=== PATIENT | female | born 1965 | race African-American/Black ===

== ENCOUNTER 2019-12-25 07:52 | Observation (INO) | payer OTHER ==
[~2019-12-25] VITALS: Ht 160 cm; Wt 66.2 kg
[~2019-12-25 07:52] MED LIST: GABAPENTIN300 MG PO; HYDROXYCHLOROQ200 MG PO
--- OUTSIDE RECORDS SUMMARY | 2019-12-25 07:55 | XMS REPORT | Summary of Care ---
Author Author MACHO WHITE M.D. Organization Unknown Address [facility] Phone Unavailable Care Team Providers Care Oil Field Rig Builder Name Role Phone MACHO WHITE M.D. Unavailable Unavailable Unavailable Unavailable Functional Status Name Dates Details Functional status health issues are not documented Status: Name Dates Details Cognitive status health issues are not documented Status: Problems Name Dates Details Chronic sinusitis (473.9, J32.9) Status: Active Hypertrophy of nasal turbinates (478.0, J34.3) Status: Active Nasal septal deviation (470, J34.2) Status: Active Chronic headaches (784.0, R51) Status: Active Medications Name Dates Details Xhance 93 MCG/ACT Nasal Exhaler Suspension 1 spray each nostril BID Quantity: 1 MACHO WHITE M.D. * Start : 11-Feb-2018 Active 16 ML Box TraZODone HCl TABS * Refills: 0 Active ROPINIRole HCl TABS * Refills: 0 Active Cyproheptadine HCl TABS * Refills: 0 Active Fluticasone Propionate SUSP * Refills: 0 Active Allergies and Adverse Reactions Name Dates Details No Known Drug Allergies (Allergy) Status: Active Past Medical History Name Dates Details History of arthritis (V13.4, Z87.39) Status: Resolved Procedures Procedure Dates Details CT Sinus w/o contrast with sag recons [address]104 Date: 11-Feb-2018 Immunization Name Dates Details Immunizations not documented Family History Name Dates Details No significant family history Comments: Family History Status: Active Social History Name Dates Details - Status: Name Dates Details Never smoker Vital Signs Date Test Result Details [id number] Height 64 in Status: Weight 142 lb Status: Body Mass Index Calculated 24.37 kg/m2 Status: Body Surface Area Calculated 1.69 m2 Status: [id number] BP Systolic 143 mm[Hg] Status: BP Diastolic 86 mm[Hg] Status: Height 64 in Status: Weight 142 lb Status: Body Mass Index Calculated 24.37 kg/m2 Status: Body Surface Area Calculated 1.69 m2 Status: Heart Rate 84 /min Status: Results Date Description Value Details [id number] Tobacco Use Screening Completed DONE Plan of Care Name Dates Details Planned Observations Planned Goals not documented Planned Encounters Neurology Referral Interventions Provided Plan* 1. Will need to continue on the nasal spray. Will send to Neurology for the headaches. CT sinus normal. Instructions Name Dates Details Instructions not documented Encounters Appointment; MACHO WHITE M.D. Encounter Diagnosis: Problem not documented On: 11-Feb-2018 15:30 Appointment; MACHO WHITE M.D. Encounter Diagnosis: Problem not documented On: 28-Feb-2018 10:30
--- OUTSIDE RECORDS SUMMARY | 2019-12-25 07:55 | XMS REPORT | Encounter Summary ---
Author Organization Unknown Address [address] [place] [address] Phone [phone] Care Team Providers Care Criminal Legal Assistant Name Role Phone Dr. Ernesto [place] 3 [phone] [facility] [place] 2 [phone] Reason for Visit Annual physical - female Instructions 1. Adult health examination CBC w/ auto diff TSH, serum or plasma urinalysis, dipstick electrocardiogram 2. Obstructive sleep apnea syndrome 3. Polyarthropathy rf (rheumatoid factor), serum erythrocyte sedimentation rate by westergren method MANUELA (antinuclear antibodies) titer + pattern, ifa, serum 4. Mixed hyperlipidemia lipid panel, serum CMP, serum or plasma 5. Perimenopausal state FSH (follicle-stimulating hormone), serum estrogen, total, serum bone density - PLEASE CALL PATIENT AND SCHEDULE HER AN APPOINTMENT. 6. Depressive disorder albuterol sulfate 2.5 mg/3 mL (0.083 %) solution for nebulization fluoxetine 20 mg capsule 7. Vitamin D deficiency ergocalciferol (vitamin D2) 50,000 unit capsule vitamin D, 25-hydroxy, total, serum 8. Restless legs ropinirole 0.5 mg tablet 9. Seasonal allergic rhinitis cyproheptadine 4 mg tablet 10. Screening for malignant neoplasm of breast MAMMO, screening, digital, bilateral - PLEASE CALL PATIENT AND SCHEDULE HER AN APPOINTMENT. 11. Screening for malignant neoplasm of colon colonoscopy referral - PLEASE CALL PATIENT AND SCHEDULE HER AN APPOINTMENT. fecal occult blood, stool 12. Screening for malignant neoplasm of cervix gynecology referral - PLEASE CALL PATIENT AND SCHEDULE HER AN APPOINTMENT. 13. Body mass index 20-24 - normal 14. High hemoglobin A1c level HbA1c (hemoglobin A1c), blood Discussion Note: None recorded. Patient educational handouts: No information available. Plan of Care Reminders Provider Appointments Est Patient 03/13/2019 10:30AM Yulisa Valdes MD Lab CBC W/ Auto Diff 02/17/2019 [facility] TSH, Serum or Plasma 02/17/2019 [facility] Urinalysis, Dipstick 02/17/2019 [place] ([facility] Fecal Occult Blood, Stool 02/17/2019 [facility] Vitamin D, 25-Hydroxy, Total, Serum 02/17/2019 [facility] FSH (Follicle-stimulating Hormone), Serum 02/17/2019 [facility] Estrogen, Total, Serum 02/17/2019 [facility] Lipid Panel, Serum 02/17/2019 [facility] CMP, Serum or Plasma 02/17/2019 [facility] HbA1C (Hemoglobin a1C), Blood 02/17/2019 [facility] Rf (Rheumatoid Factor), Serum 02/17/2019 [facility] Erythrocyte Sedimentation Rate by Westergren Method 02/17/2019 [facility] MANUELA (Antinuclear Antibodies) Titer + Pattern, Ifa, Serum 02/17/2019 [facility] Referral Colonoscopy Referral 02/17/2019 Liliam Prajapati MD Gynecology Referral 02/17/2019 Ryan Cortez MD Procedures None recorded. Surgeries None recorded. Imaging MAMMO, Screening, Digital, Bilateral 02/17/2019 [facility] Electrocardiogram 02/17/2019 [facility] Bone Density 02/17/2019 [facility] Medications Name Start Date albuterol sulfate 2.5 mg/3 mL (0.083 %) solution for nebulization Inhale 3 mL every 6 hours by nebulization route as needed. cyproheptadine 4 mg tablet TAKE 1 TABLET BY MOUTH AT BEDTIME NEEDED ergocalciferol (vitamin D2) 50,000 unit capsule Take 1 capsule twice a week by oral route. fluoxetine 20 mg capsule Take 1 capsule every day by oral route. Half a tablet per day for first two weeks, then one tablet per day. ProAir HFA 90 mcg/actuation aerosol inhaler Inhale 2 puffs every 6 hours by inhalation route as needed for 10 days. ropinirole 0.5 mg tablet Take 1 tablet every day by oral route at bedtime. trazodone 50 mg tablet Take 1 tablet every day by oral route as needed. Medications Administered None recorded. Vitals Height Weight BMI Blood Pressure 5 ft 3 in 138 lbs 24.4 kg/m2 (1) 148/90 mm[Hg] (2) 150/96 mm[Hg] Lab Results Date Name Specimen Result Interpretation Description Value Range Status Address Electrocardiogram No observation recorded. [place] [place] ([facility]) [place]: [address] [place] Urinalysis, Dipstick Color Glucose negative [place] ([facility]) [place]: [address] [place] Color Bilirubin negative [place] ([facility]) [place]: [address] [place] Color Ketones negative [place] ([facility]) [place]: [address] [place] Color Specific [place] 1.015 [place] ([facility]) [place]: [address] [place] Color Blood trace [place] [facility] [place]: [address] [place] Color PH 7.0 [place] [facility] [place]: [address] [place] Color Protein negative [place] ([facility]) [place]: [address] [place] Color Urobilinogen 0.2 [place] ([facility]) [place]: [address] [place] Color Nitrites negative [place] ([facility]) [place]: [address] [place] Color Leukocytes negative [place] ([facility]) [place]: [address] [place] Allergies Code Code System Name Reaction Severity Status Onset NKDA Problems Name Status Onset Date Source Vitamin D Deficiency Active 04/10/2017 Restless Legs Active 04/10/2017 Blood in Urine Active 04/10/2017 Multiple Joint Pain Active 04/10/2017 Mixed Hyperlipidemia Active 04/24/2017 High Hemoglobin a1C Level Active 04/24/2017 Hyperglycemia Active 04/24/2017 Obstructive Sleep Apnea Syndrome Active 02/17/2019 Seasonal Allergic Rhinitis Active 02/21/2019 Procedures Date Name Performed by 10/07/2005 Partial Hysterectomy Information not available 10/07/2001 Colonoscopy Information not available Foot/toes Surgery Procedure Information not available 02/17/2019 MAMMO, Screening, Digital, Bilateral [facility] [place] [address] [place] [address] (Work [place]) 02/17/2019 Electrocardiogram [place] [place] ([facility]) [place] [address] [place] [address] (Work Place) 02/17/2019 Bone Density [facility] [address] [place] [address] (Work Place) Vaccine List Vaccine Type MMR 01/05/2015 Tdap 10/07/2013 Social History Smoking Status Never Smoker Past Encounters 02/17/2019 Adult Health Examination; Obstructive Sleep Apnea Syndrome; Polyarthropathy; Mixed Hyperlipidemia; Perimenopausal State; Depressive Disorder; Vitamin D Deficiency; Restless Legs; Seasonal Allergic Rhinitis; Screening for Malignant Neoplasm of Breast; Screening for Malignant Neoplasm of Colon; Screening for Malignant Neoplasm of Cervix; Body Mass Index 20-24 - Normal; High Hemoglobin a1C Level Yulisa Valdes MD: [address] [place] [address], Ph. History of Present Illness Note:53yo female presents for annual physical. Was a pt of Dr Pennington before he retired. Here today for medication refills & fasting labwork. 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 Originally from [place]. [place]. Nonsmoker.<div>BP elevated in office. Checks bp at home with normal readings 120/80 at home. Sc ared of needles & bloodwork.</div><div><div>Pt without c/o today. No SOB or CP. No Lightheadedness. </div><div>Pt is stressed & depressed. Tearful. Discussed starting low-dose SSRI. Explained use & side effects. Pt not suicidal.</div></div><div>
<div>PMHx:</div><div>Family hx of DM - mother & amp; sister. Pt does not have DM & last A1c was 5.9% on 04/10/2017. Not on any medication for sugar.</div><div>Hyperlipidemia - diet controlled. Last lipid panel on 04/10/17 with TC 270, HDL 50, LDL 190, TG 151. Not on medication currently, was on atorvastatin 20mg qd in past. Has been off for past year. Trying to watch low chol diet.</div><div>Restless leg syndrome - on Requip for past year from neuro.</div><div>JOSE L- on CPAP for past year from neuro. Setting of 7cm H2o. Next visit with neuro in Jul 2019 - goes annually.</div><div>Vitamin D def - on replacement vit D</div><div>Seasonal allergies - on cyprohepatadine 4mg qhs prn & albuterol neb & inhaler as needed.</div><div>Insomnia - on trazodone 50mg qhs prn</div></div><div>Arthritis - right hip (uses cane or hand brace with flare), small joints of hands. Was evaluated by rheum, Dr Hightower in 2015. Had trial of prednisone & plaquenil for RNF/polyarthritis. Uses Advil as needed.</div><div>Due for colonoscopy, last in 2001, normal per pt.</div><div >Due for mammogram, last in 2006. Never had bone density.</div><div>Partial hysterectomy in 2005. No HRT. Ovaries still in. Still with hotflashes. Due for Pap last in 2007.</div><div>
</div> Review of Systems:ROS as noted in the HPI Review of Systems Comprehensive General Adult ROS Reported By: Patient Constitutional: Constitutional: no fever Eyes: Eyes: no vision change Cardiovascular: Cardiovascular: no chest pain Respiratory: Respiratory: no cough, no wheezing, no shortness of breath Gastrointestinal: Gastrointestinal: no abdominal pain Neurologic: Neurologic: no loss of consciousness, no headaches Psychiatric: Psych: no depression, no alcohol abuse, no anxiety, no suicidal thoughts Physical Exam General Adult Exam (Female) Reported By: Patient Constitutional: General Appearance: healthy-appearing, well-nourished, well-developed. Level of Distress: NAD. Ambulation: ambulating normally Psychiatric: Mental Status: active and alert, normal mood, normal affect Eyes: Lids and Conjunctivae: non-injected. Pupils: PERRLA. EOM: EOMI. Sclerae: non-icteric ENMT: Hearing: no hearing loss. Oropharynx: moist mucous membranes Neck: Thyroid: non-tender, no nodules Lungs: Respiratory effort: no dyspnea. Auscultation: breath sounds normal, good air movement, no wheezing, no rales/crackles Cardiovascular: Heart Auscultation: RRR, normal S1, normal S2, no murmurs. Neck vessels: no carotid bruits Abdomen: Bowel Sounds: normal. Inspection and Palpation: soft Musculoskeletal:: Joints, Bones, and Muscles: normal movement of all extremities. Extremities: no edema Neurologic: Gait and Station: normal gait Skin: Inspection and palpation: no rash
--- OUTSIDE RECORDS SUMMARY | 2019-12-25 07:55 | XMS REPORT | Encounter Summary ---
Author Organization Unknown Address [address] [place] [address] Phone [phone] Care Team Providers Care Competitive Athlete Name Role Phone Dr. Ernesto Austin 3 [phone] [facility] [place] 2 [phone] Reason for Visit lab follow-up Instructions 1. Mixed hyperlipidemia 2. Depressive disorder fluoxetine 40 mg capsule 3. Elevated blood-pressure reading without diagnosis of hypertension elevated blood pressure: care instructions hydrochlorothiazide 12.5 mg capsule 4. Vitamin D deficiency 5. High hemoglobin A1c level 6. Body mass index 20-24 - normal 7. Adult health examination Discussion Note: None recorded. Plan of Care Reminders Provider Appointments Return to Office on or around 04/17/2019 Yulisa Valdes MD Est Patient 04/27/2019 3:15PM Yulisa Valdes MD Lab None recorded. Referral None recorded. Procedures None recorded. Surgeries None recorded. Imaging None recorded. Medications Name Start Date albuterol sulfate 2.5 mg/3 mL (0.083 %) solution for nebulization Inhale 3 mL every 6 hours by nebulization route as needed. atorvastatin 20 mg tablet Take 1 tablet every day by oral route. cyproheptadine 4 mg tablet TAKE 1 TABLET BY MOUTH AT BEDTIME NEEDED ergocalciferol (vitamin D2) 50,000 unit capsule Take 1 capsule twice a week by oral route. fluoxetine 20 mg capsule TAKE 1 CAPSULE BY MOUTH EVERY DAY fluoxetine 40 mg capsule Take 1 capsule every day by oral route. hydrochlorothiazide 12.5 mg capsule Take 1 capsule every day by oral route. ProAir HFA 90 mcg/actuation aerosol inhaler Inhale 2 puffs every 6 hours by inhalation route as needed for 10 days. ropinirole 0.5 mg tablet Take 1 tablet every day by oral route at bedtime. trazodone 50 mg tablet Take 1 tablet every day by oral route as needed. Medications Administered None recorded. Vitals Height Weight BMI Blood Pressure 5 ft 3 in 132 lbs 23.4 kg/m2 142/80 mm[Hg] Lab Results Date Name Specimen Result Interpretation Description Value Range Status Address 02/23/2019 Fecal Occult Blood, Stool Fecal Globin by Immunochemistry not detected Final [facility]: [address] [place] [address], [place] 02/17/2019 Estrogen, Total, Serum Estrogen, Total, Serum 97.7 pg/mL Final [facility]: [address] [place] [address], [place] 02/17/2019 Rf (Rheumatoid Factor), Serum Normal Rheumatoid Factor <14 IU/mL <14 IU/mL Final [facility]: [address] [place] [address], [place] 02/17/2019 MANUELA (Antinuclear Antibodies) Titer + Pattern, Ifa, Serum Normal MANUELA Screen, Ifa negative negative Final [facility]: [address] [place] [address], [place] 02/17/2019 FSH (Follicle-stimulating Hormone), Serum Normal Fsh 98.9 mIU/mL Final [facility]: [address] [place] [address], [place] 02/17/2019 Erythrocyte Sedimentation Rate by Westergren Method Normal Sed Rate by Modified Westergren 14 mm/h < or=30 mm/h Final [facility]: [address] [place] [address], [place] 02/17/2019 CBC W/ Auto Diff Wbc 5.02 x10*3/L 3.98-10.04 x10*3/L Final [facility]: [address] [place] [address] Rbc 4.92 10*12/L 3.93-5.22 10*12/L Final [facility]: [address] [place] [address] Hemoglobin 13.50 g/dL 11.20-15.70 g/dL Final [facility]: [address] [place] [address] Hematocrit 41.1 % 34.1-44.9 % Final [facility]: [address] [place] [address] Mcv 83.5 fL 80.0-100.0 fL Final [facility]: [address] [place] [address] Mch 27.4 pg 25.6-32.2 pg Final [facility]: [address] [place] [address] Mchc 32.8 g/dL 32.2-35.5 g/dL Final [facility]: [address] [place] RDW-SD 39.8 fL 36.4-46.3 fL Final [facility]: [address] [place] High Platelet Count 401.0 k/uL 182.0-369.0 k/uL Final [facility]: [address] [place] Mpv 10.7 fL 7.5-11.5 fL Final [facility]: [address] [place] Neut% 45.8 % 34.0-71.1 % Final [facility]: [address] [place] Lymph% 42.6 % 19.3-51.7 % Final [facility]: [address] [place] Mon% 8.0 % 4.7-12.5 % Final [facility]: [address] [place] Eos% 3.4 % 0.7-5.8 % Final [facility]: [address] [place] Baso% 0.2 % 0.1-1.2 % Final [facility]: [address] [place] Neut# 2.3 x10*3/L 1.6-6.1 x10*3/L Final [facility]: [address] [place] Lymph# 2.1 x10*3/L 1.2-3.7 x10*3/L Final [facility]: [address] [place] Mon# 0.4 x10*3/L 0.2-0.9 x10*3/L Final [facility]: [address] [place] Eos# 0.17 x10*3/L 0.04-0.36 x10*3/L Final [facility]: [address] [place] Baso# 0.01 x10*3/L 0.01-0.08 x10*3/L Final [facility]: [address] [place] 02/17/2019 CMP, Serum or Plasma Alt 17 U/L 0-55 U/L Final [facility]: [address] [place] Ast 22 U/L 5-34 U/L Final [facility] [address] [facility] Bun 14.0 mg/dL 9.8-25.0 mg/dL Final [facility] [address] [facility] [facility] Alk Phos 78 unit/L 40-150 unit/L Final [facility]: [address] [facility] Glucose 96 mg/dL 70-99 mg/dL Final [facility]: [address] [facility] Albumin 4.1 g/dL 3.4-5.1 g/dL Final [facility]: [address] [facility] Creatinine 1.03 mg/dL 0.57-1.11 mg/dL Final [facility]: [address] [facility] ABNORMAL eGFR Non- 56 mL/min/1.73m2 Final [facility]: [address] [facility] Total Bilirubin 0.4 mg/dL 0.2-1.2 mg/dL Final [facility]: [address] [place] [address] eGFR - >60 mL/min/1.73m2 Final [facility]: [address] [facility] [facility] Sodium 142 mEq/L 135-145 mEq/L Final [facility]: [address] [facility] Potassium 4.5 mEq/L 3.5-5.1 mEq/L Final [facility]: [address] [facility] Chloride 106 mmol/L 98-110 mmol/L Final [facility]: [address] [facility] [facility] Total Protein 7.4 g/dL 6.1-8.2 g/dL Final [facility]: [address] [facility] Calcium 10.3 mg/dL 8.6-10.4 mg/dL Final [facility]: [address] [facility] Co2 27.2 mmol/L 20.0-32.0 mmol/L Final [facility]: [address] [facility] Anion Gap 9 calc Final [facility]: [address] [facility] 02/17/2019 Lipid Panel, Serum Low Hdl 49 mg/dL >50 mg/dL Final [facility]: [address] High Triglyceride 213 mg/dL <150 mg/dL Final [facility]: [address] VLDL Calc. 43 mg/dL Final [facility]: [address] cholesterol/HDL Ratio 6.0 mg/dL Final [facility]: [address] High non-HDL Cholesterol Calc. 245 mg/dL <160 mg/dL Final [facility]: [address] High Cholesterol 294 mg/dL <200 mg/dL Final [facility]: [address] High LDL Calc. 202 mg/dL <130 mg/dL Final [facility]: [address] 02/17/2019 TSH, Serum or Plasma Tsh 2.188 uIU/mL 0.350-4.940 uIU/mL Final [facility]: [address] 02/17/2019 Vitamin D, 25-Hydroxy, Total, Serum Low Vitamin D 25OH 23.1 NG/mL 30.0-96.0 NG/mL Final [facility]: [address] 02/17/2019 HbA1C (Hemoglobin a1C), Blood High A1C W/eag 5.9 % 1.0-5.7 % Final [facility]: [address] Average Blood Glucose 123 mg/dL Final [facility]: [address] Electrocardiogram No observation recorded. [facility] ([facility] [place]: [address] [place] Urinalysis, Dipstick Color Glucose negative [facility] ([facility]) [place]: [address] [place] Color Bilirubin negative [facility] ([facility]) [place]: [address] [place] Color Ketones negative [facility] ([facility]) [place]: [address] [place] Color Specific [place] 1.015 [facility] ([facility] [place] [address] [place] Color Blood trace [facility] ([facility] [place]: [address] [place] Color PH 7.0 [facility] ([facility] [place]: [address] [place] Color Protein negative [facility] ([facility]) [place]: [address] [place] Color Urobilinogen 0.2 [facility] ([facility]) [place]: [address] [place] Color Nitrites negative [facility] ([facility]) [place]: [address] [place] Color Leukocytes negative [facility] ([facility]) [place]: [address] [place] Allergies Code Code System Name Reaction Severity Status Onset NKDA Problems Name Status Onset Date Source Vitamin D Deficiency Active 04/10/2017 Restless Legs Active 04/10/2017 Blood in Urine Active 04/10/2017 Multiple Joint Pain Active 04/10/2017 Mixed Hyperlipidemia Active 04/24/2017 High Hemoglobin a1C Level Active 04/24/2017 Hyperglycemia Active 04/24/2017 Obstructive Sleep Apnea Syndrome Active 02/17/2019 Seasonal Allergic Rhinitis Active 02/21/2019 Depressive Disorder Active 03/14/2019 Elevated Blood-pressure Reading without Diagnosis of Hypertension Active 03/14/2019 Procedures Date Name Performed by 10/07/2005 Partial Hysterectomy Information not available 10/07/2001 Colonoscopy Information not available Foot/toes Surgery Procedure Information not available 02/17/2019 MAMMO, Screening, Digital, Bilateral [facility] [address] [place] [address] (Work Place) 02/17/2019 Electrocardiogram [facility] ([facility] [place] [address] [place] [phone] (Work Place) 02/17/2019 Bone Density [facility] [address] [place] [address] (Work [address]) Vaccine List Vaccine Type MMR 01/05/2015 Tdap 10/07/2013 Social History Smoking Status Never Smoker Past Encounters 03/13/2019 Mixed Hyperlipidemia; Depressive Disorder; Elevated Blood-pressure Reading without Diagnosis of Hypertension; Vitamin D Deficiency; High Hemoglobin a1C Level; Body Mass Index 20-24 - Normal; Adult Health Examination Yulisa Valdes MD: [address] [place] [address], Ph. 02/17/2019 Adult Health Examination; Obstructive Sleep Apnea Syndrome; Polyarthropathy; Mixed Hyperlipidemia; Perimenopausal State; Depressive Disorder; Vitamin D Deficiency; Restless Legs; Seasonal Allergic Rhinitis; Screening for Malignant Neoplasm of Breast; Screening for Malignant Neoplasm of Colon; Screening for Malignant Neoplasm of Cervix; Body Mass Index 20-24 - Normal; High Hemoglobin a1C Level Yulisa Valdes MD: [address] [place] [address], Ph. History of Present Illness Note:53yo female presents for one-month follow-up. Last visit was CPX on 02/17/19. Pt states she did not receive any of her referrals or orders - printed referrals to Dr Prajapati, GI (colonoscopy) and gyne, Dr Cortez. Printed orders for mammo & bone density at [facility] on [address]. Pt notes her mail is sometimes delivered to her elderly neighbor.<div>Did start fluoxetine 20mg qd, not quite enough. Will get counseling through work for free. Increase fluoxetine from 20mg to 40mg qd. Still moderately depressed.<div>Start atorvastatin 20mg qhs for lipids 02/17/19 with TC 294, LDL 202.</div><div>BP remains elevated in 130-140/80s range.</div><div>Hgb A1c 5.9% - prediabetes.</div><div>
</div>< div>Printed & reviewed labs from 02/17/19 with neg FOBT, A1c 5.9%, vit D 23.1, TSH 2.188, TC 294, LDL 202, HDL 49, TG 213, AST 22, glu 96, Cr 1.03, GFR & gt;60, K 4.5, Ca 10.3, hgb 13.5, wbc 5.02, plt 401K, ESR 14, MANUELA & RF- neg, FSH 98.9 (postmenopausal), estrogen 97.7, normal UA.</div><div>
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 Nonsmoker.
</div><div><div>BP elevated in office. Checks bp at home with normal readings 120/80 at home. Scared of needles & bloodwork.</div><div><div>Pt without c/o today. No SOB or CP. No Lightheadedness. </div><div>Pt is stressed & depressed. Tearful. Discussed starting low-dose SSRI. Explained use & side effects. Pt not suicidal.</div> </div><div>
<div>PMHx:</div><div>Family hx of DM - mother & sister. Pt does not have DM & [...] - on Requip for past year from neuro. </div><div>JOSE L- on CPAP for past year from [...] & plaquenil for RNF/polyarthritis. Uses Advil as needed. </div><div>Due for colonoscopy, last in 2001, normal per pt.</div><div>Due for mammogram, last in 2006. Never had bone density.</div><div>Partial hysterectomy in 2005. No HRT. Ovaries still in. Still with hotflashes. Due for Pap last in 2007.</div><div>
</div></div></div> Review of Systems:ROS as noted in the [...]
--- OUTSIDE RECORDS SUMMARY | 2019-12-25 07:55 | XMS REPORT | Encounter Summary ---
Author Organization Unknown Address [address] [place] [address] Phone [phone] Care Team Providers Care Invoice Classification Clerk Name Role Phone Dr. Ernesto Austin 3 [phone] [facility] [place] 2 [phone] Reason for Visit other - see typed reason Instructions 1. Body mass index 20-24 - normal 2. Depressive disorder psychology referral 3. Hormone replacement therapy 4. Mixed hyperlipidemia 5. High hemoglobin A1c level Discussion Note: None recorded. Patient educational handouts: No information available. Plan of Care Reminders Provider Appointments Nurse Visit 05/15/2019 10:00AM Nurse [place] Est Patient 07/28/2019 2:30PM Ernesto Odom MD Lab None recorded. Referral Psychology Referral 04/27/2019 Dionisio Hein PHD Procedures None recorded. Surgeries None recorded. Imaging [...] capsule twice a week by oral route. estradiol 1 mg tablet Take 1 tablet every day by oral route for 90 days. fluoxetine 40 mg capsule Take 1 capsule [...] BMI Blood Pressure 5 ft 3 in 133 lbs 23.6 kg/m2 132/88 mm[Hg] Lab Results None recorded. Allergies Code Code System Name Reaction Severity [...] Reading without Diagnosis of Hypertension Active 03/14/2019 Hormone Replacement Therapy Active 05/03/2019 Procedures Date Name Performed by 10/07/2005 Partial Hysterectomy Information not available 10/07/2001 Colonoscopy Information not available Foot/toes Surgery Procedure Information not available Vaccine List Vaccine Type MMR 01/05/2015 Tdap 10/07/2013 Social History Tobacco Smoking Status Never Smoker Past Encounters 04/27/2019 Body Mass Index 20-24 - Normal; Depressive Disorder; Hormone Replacement Therapy; Mixed Hyperlipidemia; High Hemoglobin a1C Level Yulisa Valdes MD: [address] [place] [address], Ph. History of Present Illness Note:53yo female presents for six week follow-up. Last visit 03/13/19. At that visit, fluoxetine was increased fro 20mg to 40mg qd. Pt feels that this is the correct dose for her. Mood is much more stable. Would like referral to therapist.<div>Saw gyne, Dr Cortez last week on 04/21/19 for WWE. Was started on estradiol 1mg qd. Has had hysterectomy. Mammogram & bone density ordered.< /div><div>Has not yet scheduled with GI, Dr Prajapati for colonoscopy. Last in 2001.< /div><div>Due for fasting labs in Jun 2019. </div><div>Recently started atorvastatin 20mg qhs for lipids 02/17/19 with TC 294, LDL 202.</div><div><div> Hgb A1c 5.9% - prediabetes.</div><div>
</div><div>Printed & reviewed labs from 02/17/19 with neg FOBT, A1c 5.9%, vit D 23.1, TSH 2.188, TC 294, LDL 202, HDL 49, TG 213, AST 22, glu 96, Cr 1.03, GFR >60, K 4.5, Ca 10.3, hgb 13.5, wbc 5.02, plt 401K, ESR 14, MANUELA & RF- neg, FSH 98.9 (postmenopausal), estrogen 97.7, normal UA.</div><div>
</div><div><div><div>PMHx:</div><div> Family hx of DM - mother & sister. [...] past year from neuro. Setting of 7cm H2O. Next visit with neuro in Jul 2019 - goes annually.</div><div>Vitamin D def - on replacement vit D</div><div>Seasonal allergies - on cyprohepatadine 4mg qhs prn & albuterol neb & inhaler as needed.</div><div>Insomnia - on trazodone 50mg qhs prn</div></div><div>Arthritis - right hip (uses cane or hand brace with flare), small joints of hands. Was evaluated by rheum, Dr Hightower in 2016. Had trial of prednisone & plaquenil for RNF/polyarthritis. Uses Advil as needed.</div><div>Due for colonoscopy, last in 2001, normal per pt.</div><div>Due for mammogram, last in 2006. Never had bone density.</div><div>Partial hysterectomy in 2005. No HRT. Ovaries still in. Still with hotflashes. </div></div></div> Review of Systems:ROS as noted in [...]
--- OUTSIDE RECORDS SUMMARY | 2019-12-25 07:55 | XMS REPORT ---
Author Author [facility] Address Unknown Phone Unavailable Care Team Providers Care Associate Professor Of Mathematics Name Role Phone Unavailable Unavailable Payers Payer Name Policy Type Policy Number Effective Date Expiration Date Problems This patient has no known problems. Allergies, Adverse Reactions, Alerts Allergy Name Allergy Type Status Severity Reaction(s) Onset Date Inactive Date Treating Clinician Comments No Known Allergies DA Active U 2017-04-14 00:00:00 Medications This patient has no known medications. Results Test Description Test Time Test Comments Text Results Atomic Results Result Comments - XR CHEST 2 V 2018-10-27 23:09:00 FAX: Diane Powers NP [place]: B St: PRE Name: ELINA RAY [facility] : 1965 Age/S: 53/F Santi Clarkncjosefa Ruiz Unit #: [id number] Loc: [place] [address] Phys: Diane Powers NP Acct: [id number] Dis Date: Status: PRE ER PHONE #: [phone] Exam Date: 10/27/20182302 FAX #: [phone] Reason: cough EXAMS: CPT CODE: [id number] XR CHEST 2 V 63646 HISTORY: Cough Location: C3 COMPARISON:06/22/2017 FINDINGS: 2 views of the chest are provided. Heart size and vascularity are within normal limits. The lungs are clear of focal consolidation. No effusion, pneumothorax, or acute osseous abnormality. IMPRESSION: 1. No focal consolidation. No other acute abnormalities. at 2309 Reported and signed by: Jamal Paniagua MD CC: Diane Powers NP Technologist: Richardson MAYEN(R) Trnscrd Date/Time/By: 10/27/2018 (2300) : By: [email or web address] Orig Print D/T: S: 10/27/2018 (1670) PAGE 1 Signed Report
--- OUTSIDE RECORDS SUMMARY | 2019-12-25 07:56 | XMS REPORT | Encounter Summary ---
Author Organization Unknown Address [address] [place] [address] Phone [phone] Care Team Providers Care Arc Welding Machine Operator Name Role Phone Dr. Ernesto Austin 3 [phone] [facility] [place] 2 [phone] Ryan Cortez MD 126 [phone] Reason for Visit lab only visit Instructions 1. Vitamin D deficiency vitamin D, 25-hydroxy, total, serum 2. Mixed hyperlipidemia lipid panel, serum CMP, serum or plasma Discussion Note: None recorded. Patient educational handouts: No information available. Plan of Care Reminders Provider Appointments Est Patient 07/28/2019 2:30PM Ernesto Odom MD Lab Lipid Panel, Serum 05/15/2019 [facility] CMP, Serum or Plasma 05/15/2019 [facility] Vitamin D, 25-Hydroxy, Total, Serum 05/15/2019 [facility] Referral None recorded. Procedures None recorded. Surgeries [...] NEEDED ergocalciferol (vitamin D2) 50,000 unit capsule TAKE ONE CAPSULE BY MOUTH TWICE A WEEK estradiol 1 mg tablet Take 1 tablet every day by oral route for 90 days. fluoxetine 40 mg capsule Take 1 capsule every day by oral route. hydrochlorothiazide 12.5 mg capsule Take 1 capsule every day by oral route. ProAir HFA 90 mcg/actuation aerosol inhaler Inhale 2 puffs every 6 hours by inhalation route as needed for 10 days. ropinirole 0.5 mg tablet TAKE 1 TABLET BY MOUTH EVERYDAY AT BEDTIME trazodone 50 mg tablet Take 1 tablet every day by oral route as needed. Medications Administered None recorded. Vitals None recorded. Lab Results None recorded. Allergies Code Code [...] by 10/07/2005 Partial Hysterectomy Information not available Foot/toes Surgery Procedure Information not available Colonoscopy Information not available Vaccine List Vaccine Type MMR 01/05/2015 Tdap 10/07/2013 Social History Tobacco Smoking Status Never Smoker Past Encounters 05/15/2019 Vitamin D Deficiency; Mixed Hyperlipidemia Yulisa Valdes MD: [address] [place] [address], Ph. 04/27/2019 Body Mass Index 20-24 - Normal; Depressive Disorder; Hormone Replacement Therapy; Mixed Hyperlipidemia; High Hemoglobin a1C Level Yulisa Valdes MD: [address] [place] [address], Ph. History of Present Illness None recorded. Review of Systems None recorded. Physical Exam None recorded.
--- OUTSIDE RECORDS SUMMARY | 2019-12-25 07:56 | XMS REPORT | Encounter Summary ---
Author Organization Unknown Address [address] [place] [id number] Phone [phone] Care Team Providers Care Events Manager Name Role Phone Dr. Ernesto Austin 3 [phone] [facility] [place] 2 [phone] Ryan Cortez MD 126 [phone] Reason for Visit URI Instructions 1. Influenza vaccination declined 2. Body mass index 25-29 - overweight learning about healthy weight 3. Upper respiratory infection guaifenesin ER 600 mg tablet, extended release 12 hr rapid flu (A+B) rapid strep group A, throat Augmentin 875 mg-125 mg tablet 4. Essential hypertension Discussion Note Patient was seen today for Upper respiratory infection. Patient had negative flu and strep test. Patient will be started on antibiotic. Patient can return to work on 12/28/2019 if her symptoms improve with treatment. Plan of Care Reminders Provider Appointments None recorded. Lab Rapid Flu (A+B) 12/23/2019 [email or web address] Rapid Strep Group a, Throat 12/23/2019 [facility] ([facility]) Referral None recorded. Procedures None recorded. Surgeries None recorded. Imaging None recorded. Medications Name Start Date albuterol sulfate 2.5 mg/3 mL (0.083 %) solution for nebulization USE 1 VIAL IN NEBULIZER EVERY 6 HOURS NEEDED atorvastatin 40 mg tablet Take 1 tablet every day by oral route. Augmentin 875 mg-125 mg tablet Take 1 tablet every 12 hours by oral route as directed for 5 days. cyproheptadine 4 mg tablet TAKE 1 TABLET BY MOUTH AT BEDTIME NEEDED ergocalciferol (vitamin D2) 1,250 mcg (50,000 unit) capsule TAKE ONE CAPSULE BY MOUTH TWICE A WEEK estradiol 1 mg tablet Take 1 tablet every day by oral route for 90 days. fluoxetine 40 mg capsule TAKE 1 CAPSULE BY MOUTH EVERY DAY guaifenesin ER 600 mg tablet, extended release 12 hr Take 1 tablet every 12 hours by oral route. hydrochlorothiazide 12.5 mg capsule TAKE 1 CAPSULE BY MOUTH EVERY DAY ProAir HFA 90 mcg/actuation aerosol inhaler Inhale 2 puffs every 6 hours by inhalation route as needed for 10 days. ropinirole 0.5 mg tablet TAKE 1 TABLET BY MOUTH EVERYDAY AT BEDTIME trazodone 50 mg tablet Take 1 tablet every day by oral route as needed. Medications Administered None recorded. Vitals Height Weight BMI Blood Pressure 5 ft 3 in 146 lbs 25.9 kg/m2 (1) 150/96 mm[Hg] (2) 146/91 mm[Hg] Results Lab Results Date Name Specimen Result Interpretation Description Value Range Status Address 12/23/2019 Rapid Strep Group a, Throat Strep negative [facility] ([facility]): [address], [place] 12/23/2019 Rapid Flu (A+B) Type Flu a negative [facility] ([facility]): [address], [place] Type Flu B negative [facility] ([facility]): [address], [place] Allergies Code Code System Name Reaction Severity [...] Tobacco Smoking Status Never Smoker Past Encounters 12/23/2019 Influenza Vaccination Declined; Body Mass Index 25-29 - Overweight; Upper Respiratory Infection; Essential Hypertension Leisa Ramos, DO: [address], [address], [place] [address], Ph. History of Present Illness Note:Pt c/o sore throat that started on Saturday, worsening and now w/ productive cough w yellow phlegm, a/w chest congestion. Temp 100.0 yesterday, headache, body aches onset yesterday.<div>Pt works in daycare, Denies recent traveling, sick contact. <div>
</div>HTN: noticed elevated BP today. pt does not check BP at home, but report she has been taking HCTZ med and requested refills from her PCP yesterday. She was not compliant w BP last year and thus she still has med at home. </div> Review of Systems Comprehensive General Adult ROS Reported By: Patient Constitutional: Constitutional: no night sweats, no significant weight gain, no significant weight loss Eyes: Eyes: no vision change ENMT: Ears: no difficulty hearing, no ear pain. Mouth/Throat: sore throat Cardiovascular: Cardiovascular: no chest pain, no shortness of breath when walking, no lightheadedness Respiratory: Respiratory: no wheezing, no shortness of breath, no coughing up blood Gastrointestinal: Gastrointestinal: no abdominal pain, no nausea, no vomiting Neurologic: Neurologic: no loss of consciousness Physical Exam Upper Respiratory Infection Exam Comprehensive Reported By: Patient Constitutional: General Appearance in no acute distress Eyes: Pupils EOM intact, conjunctiva non-injected Ears: Right Tympanic membrane landmarks clear. Left Tympanic membrane: landmarks clear Nose: Nasal Mucosa normal, pink and moist Oral Cavity/Mouth: Oral Mucosa: normal. Posterior pharynx: erythema Lymph Nodes: Cervical no palpable lymph node enlargement, no submandibular adenopathy Neck: Neck symmetrical, trachea midline Lungs: Respiratory effort unlabored. Auscultation breath sounds normal, no wheezing, no rales / crackles Cardiovascular System: Auscultation no murmur. Observation/Palpation of peripheral vascular system no edema
--- NOTE | 2019-12-25 08:25 | NUR ---
clients credit card given to spouse.
[2019-12-25 08:29] LABS: BASOPHILS % 0.3 % (0.0-1.0); EOSINOPHILS # (AUTO) 0.3 (0.0-0.4); EOSINOPHILS % 4.4 % (0.0-6.0); HEMATOCRIT 42.7 % (34.2-44.1); LYMPHOCYTES # (AUTO) 3.1 (1.0-3.2); MEAN CORPUSCULAR HGB CONC 32.8 g/dL (31-35); MEAN CORPUSCULAR VOLUME 85.4 fL (81-99); MONOCYTES # (AUTO) 0.6 (0.2-0.8); MONOCYTES % 9.7 % (4.4-11.3); NEUTROPHILS % 33.3 % (38.7-80.0); PLATELET COUNT 416 x10e3/uL (140-360)
[2019-12-25 08:47] LABS: ALANINE AMINOTRANSFERASE 15 IU/L (0-55); ALBUMIN 3.9 g/dL (3.5-5.0); ALKALINE PHOSPHATASE 79 IU/L (40-150); ANION GAP 12.1 mmol/L (8-16); BLOOD UREA NITROGEN 12 mg/dL (7-26); BUN/CREATININE RATIO 11 (6-25); CALCIUM 10.2 mg/dL (8.4-10.2); CARBON DIOXIDE 25 mmol/L (22-29); CHLORIDE 107 mmol/L (98-107); CREATINE KINASE 119 IU/L (29-168); CREATININE, SERUM 1.14 mg/dL (0.57-1.11); EST GLOMERULAR FILTRATION RATE > 60 ML/MIN (60-); GLUCOSE 108 mg/dL (74-118); POTASSIUM 4.1 mmol/L (3.5-5.1); SODIUM 140 mmol/L (136-145)
[2019-12-25 08:58] LABS: INFLUENZAE A&B ANTIGEN (RAPID) NEGATIVE (NEGATIVE); STREPTOCOCCUS GRP A ANTIGEN NEGATIVE (NEGATIVE)
[2019-12-25] MEDS ORDERED: KETOROLAC TROMETHAMINE 30 MG/ML VIAL IV STA (10:32)
--- NOTE | 2019-12-25 10:33 | Diagnostic Imaging Report ---
EXAMINATION: CHEST SINGLE (PORTABLE) INDICATION: Cough, low-grade fever COMPARISON: Chest radiograph 02/16/2017 FINDINGS: LINES/TUBES:None LUNGS:The lungs are well-inflated. No focal consolidation or pulmonary edema. PLEURA:No pleural effusion or pneumothorax. MEDIASTINUM:The cardiomediastinal silhouette appears normal in size and shape. BONES/SOFT TISSUES:No acute osseous injury. ABDOMEN:No free air under the diaphragm. IMPRESSION: No focal pneumonia or pulmonary edema. Signed by: Nicole Elliott MD on 12/25/2019 10:30 AM
[2019-12-25 10:45] LABS: CREATINE KINASE MB < 1.00 ng/mL (0-4.3)
[2019-12-25] MEDS ORDERED: ASPIRIN 81 MG CHEW TAB PO ONE (11:00)
[2019-12-25 17:08] VITALS: BP 133/85
[2019-12-25] MEDS ORDERED: ONDANSETRON HCL INJ 2MG/ML 2ML 2 MG/ML VIAL IV PRN (17:15)
[2019-12-25] MEDS ORDERED: IPRATROPIUM BROMIDE INHALER 12.9 GM INH INH PRN (17:45)
[2019-12-25] MEDS: OSELTAMIVIR PHOSPHATE 75 MG CAP PO SCH (17:46)
[2019-12-25] MEDS: LACTATED RINGER'S 1,000 ML IV SCH (17:46)
[2019-12-25 17:47] VITALS: BP 133/85
--- NOTE | 2019-12-25 18:04 | History and Physical ---
PRIMARY CARE DOCTOR: Dr. Mandie Canchola. CHIEF COMPLAINT: Cough and shortness of breath. HISTORY OF PRESENT ILLNESS: This is a 54-year-old woman who has been not feeling well for about four days now with severe cough spell, myalgia, headache and sore throat. The patient was seen at her primary care doctor's office, where influenza screen was negative. However, the patient continued to not feeling better, therefore this morning she came to emergency room. At this time, seems like her cough is a little bit better. However, she feels that she cannot take a deep breath, although no pain per se. The patient also continue to have severe myalgia. The patient does get recurrent bronchitis attack. She does have nebulizer treatment at home. PAST MEDICAL AND SURGICAL HISTORY: 1. Dyslipidemia. 2. Arthritis. 3. . MEDICATIONS: Please see medication reconciliation form. ALLERGIES: NONE. SOCIAL HISTORY: Never smoked. FAMILY HISTORY: Diabetes. REVIEW OF SYSTEMS: A 10-point review of system obtained, nothing else is significant other than what is stated in HPI. PHYSICAL EXAMINATION: VITAL SIGNS: Temperature 98.1, pulse 88, respiratory rate 16, blood pressure 135/84. GENERAL: No acute distress. SKIN: No rash. HEENT: Anicteric, oropharynx is clear. LUNGS: No wheezing. HEART: Regular rhythm. Normal S1, S2. GI: Abdomen is soft, nondistended. MUSCULOSKELETAL: Painless range of motion. NEUROLOGIC: Alert and oriented x3. Cranial nerves II through XII grossly intact. PSYCHIATRIC: No hallucination. LABORATORY DATA: Laboratory english, white count 5.9, hemoglobin 14, platelet count 416. Creatinine 1.14. Troponin negative. CPK is negative. Serology; influenza screen is negative. Chest x-ray, no acute disease. ASSESSMENT AND PLAN: 1. Viral syndrome/upper respiratory infection/bronchitis. We will observe overnight. Aggressive hydration. We will use Atrovent nebulizer treatment q.4h scheduled around the clock. Hopefully this will open up her airway. The patient does not feel comfortable going home at this time. She does live with her , who was asymptomatic at this time. The coronavirus is pending as well. If she feels better tomorrow, I will plan to discharge her home while waiting for coronavirus, PCR to come back. She understands she will need to self quarantine until the result is back. 2. Gastrointestinal and deep venous thrombosis prophylaxis, no risk, low risk not indicated on a prolonged hospitalization. MD CHRISTINE Gibbs/NOHEMI /[id number]
[2019-12-25] MEDS: ACETAMINOPHEN 325 MG TAB PO PRN (18:59)
[2019-12-25] MEDS ORDERED: IPRATROPIUM BROMIDE 0.02% 2.5 ML NEB NEB SCH ×2 (19:00)
[2019-12-25] MEDS: IPRATROPIUM BROMIDE INHALER 12.9 GM INH INH SCH ×2 (19:46→23:42)
[2019-12-25 20:16] VITALS: BP 128/81
[2019-12-25 20:20] VITALS: BP 128/81
--- NOTE | 2019-12-25 21:10 | NUR ---
WALKING ROUNDS PERFORMED, RECEIVED PT LAYING SEMI FOWLERS IN BED, AAOX3, RR EVEN AND NON-LABORED, ON ROOM AIR. PT CURRENTLY WEARING MASK. PT REPORTS HEADACHE AT THIS TIME. LEFT PT LAYING SEMI FOWLERS IN BED, BED IN LOW LOCKED POSITION, SIDE RAILS UPX2, CALL LIGHT AND PHONE WITHIN REACH.
[2019-12-26 00:01] VITALS: BP 139/97
[2019-12-26] MEDS: ACETAMINOPHEN 325 MG TAB PO PRN ×2 (01:35→08:51)
[2019-12-26] MEDS: LACTATED RINGER'S 1,000 ML IV SCH ×2 (01:35→08:41)
[2019-12-26 05:28] LABS: BASOPHILS % 0.4 % (0.0-1.0); EOSINOPHILS # (AUTO) 0.2 (0.0-0.4); EOSINOPHILS % 3.7 % (0.0-6.0); HEMATOCRIT 44.5 % (34.2-44.1); HEMOGLOBIN 13.8 g/dL (12.0-16.0); LYMPHOCYTES # (AUTO) 1.8 (1.0-3.2); MEAN CORPUSCULAR HEMOGLOBIN 27.8 pg (28-32); MEAN CORPUSCULAR VOLUME 89.7 fL (81-99); MONOCYTES # (AUTO) 0.4 (0.2-0.8); MONOCYTES % 7.2 % (4.4-11.3); NEUTROPHILS # (AUTO) 2.5 (2.1-6.9); NEUTROPHILS % 51.5 % (38.7-80.0); PLATELET COUNT 352 x10e3/uL (140-360); RED BLOOD COUNT 4.96 x10e6/uL (3.6-5.1); RED CELL DISTRIBUTION WIDTH 12.9 % (11.7-14.4)
[2019-12-26 05:41] VITALS: BP 180/88
[2019-12-26 06:07] LABS: ALANINE AMINOTRANSFERASE 16 IU/L (0-55); ALBUMIN 3.7 g/dL (3.5-5.0); ALKALINE PHOSPHATASE 72 IU/L (40-150); BLOOD UREA NITROGEN 10 mg/dL (7-26); BUN/CREATININE RATIO 11 (6-25); CALCIUM 9.5 mg/dL (8.4-10.2); CARBON DIOXIDE 21 mmol/L (22-29); CHLORIDE 110 mmol/L (98-107); CREATININE, SERUM 0.94 mg/dL (0.57-1.11); EST GLOMERULAR FILTRATION RATE > 60 ML/MIN (60-); GLUCOSE 97 mg/dL (74-118); SODIUM 137 mmol/L (136-145)
[2019-12-26] MEDS: IPRATROPIUM BROMIDE INHALER 12.9 GM INH INH SCH (06:40)
--- NOTE | 2019-12-26 07:00 | NUR ---
RECEIVED PATIENT RESTING IN BED NO S/S OF DISTRESS. BED LOW, WHEELS LOCKED, SIDE RAILS X2. CALL LIGHT IN REACH WILL CONTINUE TO MONITOR PATIENT.
[2019-12-26] MEDS: OSELTAMIVIR PHOSPHATE 75 MG CAP PO SCH (08:41)
[2019-12-26 08:57] VITALS: BP 151/86
[2019-12-26 09:06] VITALS: BP 151/86
[2019-12-26 11:57] VITALS: BP 151/78
[2019-12-26] MEDS ORDERED: ATROVENT HFA12.9 GM INH ×2 (12:18→12:19)
--- NOTE | 2019-12-26 12:36 | NUR ---
REMOVED PATIENTS IV. CATHETER TIP INTACT AND PRESSURE DRESSING APPLIED.
--- NOTE | 2019-12-26 12:52 | Discharge Summary ---
PRIMARY CARE DOCTOR: Dr. Mandie Canchola. FINAL DIAGNOSIS: Bronchitis, likely due to viral etiology. SECONDARY DIAGNOSES: 1. Dyslipidemia. 2. Arthritis. CONSULTANTS: None. PROCEDURES/STUDIES PERFORMED: Chest x-ray was negative. HISTORY: Per [facility]. HOSPITAL COURSE: The patient right now was admitted, likely a viral bronchitis. Her influenza is negative. Empirically, she was put on Tamiflu, however, since she already had 2 rapid flu screen negative, I will not send her home with Tamiflu. I will prescribe her with Atrovent nebulizer treatment for her to use at home. She already has a machine at home. The patient understands she needs to self quarantine until the Infectious Disease nurse calls her with Coronavirus PCR results. Does not matter whether it is positive or negative. The patient was seen and examined today. CONDITION ON DISCHARGE: Improved. DISCHARGE MEDICATIONS: Please see medication reconciliation form. YiMD CHRISTINE Rowe/NOHEMI /[id number]
--- NOTE | 2019-12-26 13:06 | NUR ---
PATIENT DISCHARGED FROM FACILITY. PATIENT GATHERED ALL PERSONAL BELONGINGS, DISCHARGE INSTRUCTIONS, AND FOLLOW UP INFORMATION. PATIENT LEFT UNIT IN WHEELCHAIR AND WENT HOME VIA PRIVATE AUTO. NO S/S OF DISTRESS WHEN LEAVING FACILITY.
--- NOTE | 2019-12-26 13:26 | NUR ---
DPA DONE VIA PHONE AND THROUGH RECORDS DUE TO ISOLATION.
== END 2019-12-26 13:08 | disposition home or self-care (01) ==
LOC: ER 07:52 → ERHOLD 10:47 → INTOOBSV 10:47 → IMCU 16:50
PROVIDERS: ADMIT Internal Medicine; ATTEND Internal Medicine
DX: J20.8 Acute bronchitis due to other specified organisms (principal); E78.5 Hyperlipidemia, unspecified; M19.90 Unspecified osteoarthritis, unspecified site; Z83.3 Family history of diabetes mellitus; Z03.818 Encounter for observation for suspected exposure to other biological agents ruled out
CPT/HCPCS: 36415 ×2; 71045; 80053 ×2; 82550; 82553; 83518; 84484; 85025 ×2; 87040; 87070; 87400; 87635; 99284; G0378 ×2; J1885; J2405; J7121 ×2